=== PATIENT | female | born 1995 | race Caucasian/White ===

== ENCOUNTER 2020-07-06 11:42 | Emergency (ER) | payer SELFPAY ==
[2020-07-06 14:12] LABS: HEMOGLOBIN 12.8 gm/dl (12.3-15.3); RED BLOOD COUNT 4.42 M/UL (4.00-5.10); WHITE BLOOD COUNT 9.5 K/UL (4.5-11.0)
[2020-07-06 14:32] LABS: BUN/CREATININE RATIO 17 (0-10)
== END 2020-07-06 17:10 | disposition home or self-care (01) ==
LOC: ER1 11:42
PROVIDERS: Physician Assistant Medical
DX: R53.1 Weakness (principal); R47.81 Slurred speech; Z88.8 Allergy status to other drugs, medicaments and biological substances
CPT/HCPCS: 36415; 70450; 71045; 80053; 80307; 81001; 82550; 82553; 83605; 83874; 84439; 84443; 84484; 84703; 85025; 93005; 99284

== ENCOUNTER → 2020-08-05 | Outpatient (CLI) | payer BC ==
[2020-08-07 09:13] LABS: VITAMIN D, 25-HYDROXY 7.6 ng/mL (30.0-100.0)
[2020-08-07 10:13] LABS: RHEUMATOID ARTHRITIS FACTOR <10.0 IU/mL (0.0-13.9)
[2020-08-07 15:13] LABS: ANTICARDIOLIPIN AB, IGG, QN <9 GPL U/mL (0-14); ANTICARDIOLIPIN AB, IGM, QN <9 MPL U/mL (0-12); LYME IGG/IGM AB <0.91 ISR (0.00-0.90)
[2020-08-07 16:13] LABS: TREPONEMA PALLIDUM ANTIBODIES Non Reactive (Non Reactive)
[2020-08-08 15:08] LABS: SJOGREN'S ANTI-SS-A <0.2 AI (0.0-0.9); SJOGREN'S ANTI-SS-B <0.2 AI (0.0-0.9)
[2020-08-09 17:11] LABS: ANGIOTENSIN-CONVERTING ENZYME 40 U/L (14-82)
== END ==
LOC: LAB 15:44
PROVIDERS: Psychiatry & Neurology Neurology
DX: M19.90 Unspecified osteoarthritis, unspecified site (principal)
CPT/HCPCS: 36415; 82164; 82607; 83921; 84439; 84443; 85652; 86038; 86235; 86431; 86618; 86780